=== PATIENT | female | born 1990 | race Caucasian/White ===

== ENCOUNTER 2017-01-29 00:34 | Observation (INO) ==
[2017-01-29] MEDS ORDERED: SODIUM CHLORIDE 0.9% 500 ML IV STA (01:04)
[2017-01-29] MEDS ORDERED: ONDANSETRON 4 MG/2 ML VIAL IV STA ×2 (01:04→03:30)
[2017-01-29] MEDS ORDERED: MORPHINE 2 MG/1 ML SYRINGE IV STA ×2 (01:06→03:30)
[2017-01-29] MEDS ORDERED: ONDANSETRON 4 MG/2 ML VIAL ONE ×2 (01:27→03:28)
[2017-01-29] MEDS ORDERED: MORPHINE 2 MG/1 ML SYRINGE ONE ×2 (01:27→03:28)
[2017-01-29 01:45] LABS: Basophils % 0.3 % (0.0-0.8); Eosinophils # 0.2 10*3/uL (0.0-0.87); Eosinophils % 1.3 % (0.00-10.9); Hematocrit 33.8 VOL% (35.7-47.0); Hemoglobin 11.2 GM/DL (12.0-16.0); Immature Granulocytes % 0.5 %; Immature Granulocytes Absolute 0.06 #; Lymphocytes % 16.5 % (21.3-54.2); Mean Corpuscular HGB Conc 33.1 GM/DL (32-36); Mean Corpuscular Hemoglobin 27 PG (27-34); Mean Corpuscular Volume 80.5 FL (87-102); Mean Platelet Volume 9.9 FL (9.6-12.0); Monocytes # 0.5 10*3/uL (0.11-0.8); Monocytes % 3.7 % (1.7-12.7); Neutrophils # 9.3 10*3/uL (1.4-7.4); Neutrophils % 77.7 % (38.7-73.9); Platelet Count 341 T/CUMM (130-400); Red Cell Distribution Width 14.6 % (9.3-17.3)
[2017-01-29 01:51] LABS: Alanine Aminotransferase 17 U/L (13-56); Albumin 3.1 G/DL (3.4-5.0); Alkaline Phosphatase 81 U/L (45-117); Aspartate Amino Transferase 12 U/L (0-37); Bilirubin,Total < 0.39 MG/DL (0.2-1.0); Blood Urea Nitrogen 11 MG/DL (7-18); Calcium 8.8 MG/DL (8.5-10.1); Glucose 108 MG/DL (74-106); Osmolality,Calculated 276.5 MOS/KG (273-304); Potassium 3.8 MMOL/L (3.5-5.1); Sodium 139 MMOL/L (136-145); Total Protein 6.4 G/DL (6.4-8.3)
[2017-01-29] MEDS ORDERED: MAGNESIUM HYDROXIDE SUSP 30 ML UDCUP PO PRN (03:31)
[2017-01-29] MEDS ORDERED: ACETAMINOPHEN 325 MG TABLET PO PRN (03:31)
[2017-01-29] MEDS ORDERED: IBUPROFEN 800 MG TABLET PO PRN (03:31)
[2017-01-29] MEDS ORDERED: ONDANSETRON 4 MG/2 ML VIAL IV PRN (03:31)
[2017-01-29] MEDS ORDERED: BISACODYL 10 MG SUPP RECTAL PRN (03:31)
[2017-01-29] MEDS ORDERED: MORPHINE 2 MG/1 ML SYRINGE IV PRN (03:31)
--- NOTE | 2017-01-29 03:34 | Emergency Department Note ---
I, Quyen Ahumada, am scribing for, and in the presence of, Rey Waldron MD 01: 11. [employer] Kevin Lee, MD, personally performed the services described in this documentation, ascribed by Quyen Ahumada in my presence, and it is both accurate and complete . Arrival - Arrival Chief Complaint: Urogenital - Female Stated Complaint: having miscarriage ED Nursing Triage Note: TO ER PER WHEELCHAIR WITH COMPLAINT OF HAVING A MISCARRIAGE. STATES HAS BEEN BLEEDING HEAVILY AND PASSING BLOOD CLOTS FOR PAST 8 -9 DAYS. PATIENT STATES WAS SEEN AT [facility] FOR SAME COMPLAINT BUT STATES THEY DID NOTHING FOR HER. TONIGHT PATIENT BEGAN HAVING SEVERE LOWER ABOMINAL CRAMPS AROUND 2100 THAT HAVE PROGRESSIVELY BECAME WORSE AND AT SOME POINT SINCE THEN PATIENT STATES SHE HAS PASSED A TISSUE LIKE SUBSTANCE THAT RESEMBLED A CHICKEN LIVER. PATIENT ESTIMATED HERSELF ABOUNT 6 WEEKS . Mode of Arrival: Wheelchair Limitations: No Limitations Source: Patient - History of Present Illness HPI Narrative: Pt is a 26 y/o female who came to ED with c/o severe cramping in lower abdomen that started over a week ago. Pt notes going to see Dr. Carr due to vaginal bleeding but quantadative base ABG test results should be back tomorrow. Pt had sonogram done 2-3 weeks prior showing no fetus. Spouse notes they went to [facility] with vaginal bleeding but was told there was nothing to do, then saw Dr. Carr. Pt notes her biggest clot was tonight and cramps have worsened. Pt reports being 8 weeks gestation this week, but denies fever or US done. Pt's O2 sat is 126 in ED. Onset (ago): day(s) Consistency: constant Severity: mild Severity scale (1-10): 3 Quality: cramping Date of Last Menstrual Period: 10/2016 Allergies/Adverse Reactions: Allergies Allergy/AdvReac Type Severity Reaction Status Date / Time No Known Allergies Allergy Unverified 01/29/17 00:57 Review of System - Review of System 12 point system: reviewed and no additional remarkable complaints except as stated - Review of System Constitutional: Absent: fever, weakness Respiratory: Absent: respiratory distress Cardiovascular: Absent: chest pain Gastrointestinal: Present: abdominal pain (cramping; lower) Genitourinary female: Present: other (vaginal bleeding) Musculoskeletal: Absent: arm pain Skin: Absent: rash Neurological: Absent: headache Medical,Surgical,& Family Hx - Family History Family History: noncontributory - Social History Smoking Status: Unknown if ever smoked Frequency of Alcohol Use: None Type of Drug Use: None Marital Status: Lives With:: Spouse Functional capacity: independent ambulation Exam Vital Signs: Vital Signs Temperature 97.3 F L 01/29/17 00:46 Pulse Rate 83 01/29/17 00:46 Respiratory Rate 26 H 01/29/17 00:46 Blood Pressure 126/92 01/29/17 00:46 O2 Sat by Pulse Oximetry 100 01/29/17 01:35 - General General appearance: alert, in no apparent distress - Head Head exam: Present: atraumatic, normocephalic - Eye Eye exam: Present: PERRL, EOMI - ENT ENT exam: Present: mucous membranes moist. Absent: mucous membranes dry - Neck Neck exam: Present: full ROM. Absent: tenderness - Chest Chest inspection: Present: symmetric chest wall rise - Respiratory Respiratory exam: Present: normal lung sounds bilaterally. Absent: respiratory distress - Cardiovascular Cardiovascular exam: Present: regular rate, normal rhythm, normal heart sounds - Abdominal Exam Abdominal exam: Present: soft, other. Absent: tenderness - Extremities Exam Extremities exam: Present: full ROM. Absent: tenderness, pedal edema - Neurological Exam Neurological exam: Present: alert, oriented X3, CN II-XII intact. Absent: motor sensory deficit - Psychiatric Psychiatric exam: Present: normal affect, normal mood - Skin Skin exam: Present: warm, dry Course Course Narrative: will admit for [facility] Results - Labs CBC & BMP: 01/29/17 01:21 01/29/17 01:21 Lab Results: I have reviewed the patients labs Labs: Laboratory Tests 01/29/17 01/29/17 01:21 01:21 WBC 12.0 RBC 4.20 Hgb 11.2 L Hct 33.8 L MCV 80.5 L Plt Count 341 Neut % (Auto) 77.7 H Lymph % (Auto) 16.5 L Neut # (Auto) 9.3 H Sodium 139 Potassium 3.8 Chloride 106 Carbon Dioxide 22 Creatinine 0.90 GFR Calculation 110 Glucose 108 H AST 12 Albumin 3.1 L Albumin/Globulin Ratio 0.9 L Laboratory Tests 08/17/17 08/17/17 01:21 01:21 HCG Beta Subunit 1182.0 H Blood Type O POSITIVE Antibody Screen Negative - Diagnostic Findings Procedure: Ultrasound: image reviewed by me, report reviewed by me (incomplete ab. US preg transabd first trimester: In this setting of positive test, the saccular fluid collection in the lower uterine segment may represent an in progress, missed , or less likely a pseudo-sac of ectopic . Careful follow up with quantitative beta HCG's and US recommended.) Disposition Clinical Impression: Incomplete Case discussed with: patient Disposition: Still a Patient Condition: Stable
[2017-01-29] MEDS ORDERED: LACTATED RINGERS 1,000 ML IV SCH (04:00)
--- NOTE | 2017-01-29 06:48 | Ultrasound Report ---
US OB <= 14 weeks fetus Indication: Vaginal bleeding. . First trimester ultrasound: Transabdominal and endovaginal images the pelvis were obtained, Morris scale and color Doppler. Uterus is anteverted measuring 123 x 45 x 56 mm. There is a saclike structure in the lower uterine segment that contains some debris but no discretely identifiable anatomic structures such as yolk sac or pole. Average diameter of the sac is 12 mm. No motion identified to suggest cardiac activity. Right ovary 17 x 13 x 18 mm. Left ovary 33 x 16 x 22 mm. Both are unremarkable. No free fluid in the cul-de-sac. Impression: Presumed SAB with a 12 mm saclike structure containing debris in the lower uterine segment. If this represents , it is approximately 5 weeks 2 days. No cardiac activity or other discretely identified anatomic structures are present. PROCEDURE INTERPRETED AT [facility] DEPARTMENT OF RADIOLOGY Final Report Signed by: Julien Eugene M.D.
[2017-01-29] MEDS: DOCUSATE SODIUM 100 MG CAPSULE PO SCH ×2 (09:31→20:43)
[2017-01-29] MEDS: OXYTOCIN/LR 20 UNIT/1,000 ML BAG IV SCH ×2 (11:09→18:19)
--- NOTE | 2017-01-29 11:37 | OB/GYN History & Physical ---
History of Present Illness Chief complaint: Vaginal bleeding History of present illness: Ms. Posey is a 26 year old female This patient presented to the emergency room last evening with vaginal bleeding and after passing a large clot. Ultrasound of the emergency room was obtained was demonstrated to be approximately 5 weeks and 2 days. The gestational sac was completely compressed and was in the lower uterine segment indicating an impending miscarriage. There was no cardiac activity noted. This patient had been experiencing vaginal bleeding and been seen at the [facility] emergency room as well. No ultrasound was performed at that particular visit. This patient was evaluated over the evening and she had small amount of bleeding through the night and presently with no active bleeding. Discussed with this patient the impending spontaneous miscarriage. And will add the IV Pitocin and analgesic to assist her with this process. Risks benefits were thoroughly discussed and she is in full agreement. Beta hCG titer and went from 1100 down to 600. Allergies Allergy/AdvReac Type Severity Reaction Status Date / Time No Known Allergies Allergy Unverified 01/29/17 00:57 Medical,Surgical,& Family Hx - Medical History Respiratory: History of: Pneumonia (9 years ago) Musculoskeletal: History of: Musculoskeletal Problems (scoliosis) No history of: Amputation - Surgical History Cardiac Surgeries: Patient Denies: Cardiac Catheterization Thoracic Surgeries: Patient denies;: Organ Transplant, Lobectomy Neurologic Surgeries: Patient denies: Neurologic Surgery HEENT Surgeries: Patient denies: Eye Surgery, Thyroid Surgery, Tonsilectomy & Adenoidectomy Abdominal Surgeries: Patient denies: Abdominal Surgery Reproductive Surgeries: Surgical HX of;: Section (2013), Gynecologic Surgery Patient denies;: Genitourinary Surgery - Family History Family History: Reports;: Family Cancer (Maternal g'father throat CA), Family Diabetes (Father), Family Heart Disease (Father), Family Hypertension (Father) Denies;: Family Anesthesia Reaction, Family Hematology, Family Psychiatric Problems, Family Stroke, Additional Family History - Social History Smoking Status: Former smoker Frequency of Alcohol Use: None Type of Drug Use: None 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 Vitals: Vital Signs Temp Pulse Pulse Resp BP BP Pulse Ox 01/29/17 11:05 98.2 F 58 L 20 115/52 01/29/17 07:16 98.4 F 77 18 118/74 01/29/17 06:44 16 01/29/17 06:24 20 01/29/17 05:00 20 01/29/17 04:00 97 F L 74 20 128/63 01/29/17 01:35 01/29/17 00:46 97.3 F L 83 26 H 126/92 99 Pulse Ox Pulse Ox 01/29/17 11:05 98 01/29/17 07:16 97 01/29/17 06:44 01/29/17 06:24 01/29/17 05:00 01/29/17 04:00 99 01/29/17 01:35 100 01/29/17 00:46 General appearance: no acute distress - Antepartum / Post Antepartum Exam Vagina: Present: normal moisture (Vaginal bleeding noted on the perineum.) - Head Head exam: Present: normal inspection - Eye Eye exam: Present: EOMI Pupils: Present: MENDY - ENT ENT exam: Present: normal exam - Neck Neck exam: Present: normal inspection - Respiratory Respiratory exam: Present: clear to auscultation bilaterally - Breast Breasts: as per HPI Menstruation: as per HPI (Bleeding passes of a clot. Blood is on her perineum as well.) - Cardiovascular Cardiovascular exam: Present: regular rate and rhythm - GI/Abdominal GI/Abdominal exam: Present: normal bowel sounds - Extremities Exam Extremities exam: Present: normal inspection - Back Exam Back exam: Present: normal inspection - Psychiatric Psychiatric exam: Present: normal affect - Skin Skin exam: Present: normal color Assessment and Plan (1) Incomplete Status: Acute Assessment and plan: IV Pitocin, analgesic, impending AB. Current Visit: Yes Results - Labs CBC & BMP: 01/29/17 01:21 01/29/17 01:21
--- NOTE | 2017-01-30 07:57 | Ultrasound Report ---
US pelvic complete Indication: Check for retained products of conception Comparison: OB ultrasound January 29, 2017. Technique: Multiple longitudinal and transverse sonographic images of the pelvis were obtained with transabdominal probe. Findings: Uterus is anteverted and measures 11.6 x 4.6 x 5.9 cm. Endometrial stripe measures 0.51 cm. There is heterogeneously hypoechoic echotexture within the region of the endocervical canal which appears prominent. Retained products of conception not excluded. Right ovary measurement given of 2.7 x 1.3 x 1.8 cm. Left ovary measurement given of 3.4 x 1.5 x 2.2 cm. IMPRESSION: There is heterogeneously hypoechoic echotexture within the region of the endocervical canal which appears prominent. Retained products of conception not excluded. Transvaginal ultrasound may be of benefit for further evaluation. PROCEDURE INTERPRETED AT [facility] DEPARTMENT OF RADIOLOGY Final Report Signed by: Dr Cuate Sánchez
[2017-01-30 08:06] VITALS: BP 112/57
[2017-01-30] MEDS ORDERED: oxyCODONE/ACETAMINOPHEN 5-325 MG TABLET PO PRN (10:24)
[2017-01-30] MEDS: DOCUSATE SODIUM 100 MG CAPSULE PO SCH (11:48)
--- NOTE | 2017-02-08 02:11 | Discharge Summary ---
DATE OF ADMISSION: 01/29/2017 DATE OF DISCHARGE: 01/30/2017 She was admitted to the emergency room with vaginal bleeding and after passing large amount of blood clots. Ultrasound was obtained of the pelvis demonstrated compressed sac to be approximately 5 weeks and 2 days. There was no cardiac activity noted. Beta hCG titer was 1100 and had decreased to 600. She was observed over the evening with IV Pitocin. Repeat ultrasound demonstrated no cardiac activ ity and no evidence of intrauterine . The patient was ambulating well, voiding well without any shortness of breath or chest pain. She was subsequently discharged and advised to followup [facility] care.
== END 2017-01-30 13:00 | disposition home or self-care (01) ==
LOC: N.ED 00:34 → N.OB 00:34
PROVIDERS: ADMIT Obstetrics & Gynecology; ATTEND Obstetrics & Gynecology

== ENCOUNTER 2017-06-11 13:54 | Inpatient (IN) ==
[2017-06-11 15:36] LABS: Apearance,Urine Slightly Hazy (Clear); Bilirubin,Urine Negative (Negative); Blood, Urine Large mg/dL (Negative); Glucose,Urine (UA) Negative (Negative); Ketones,Urine 20 mg/dL (Negative); Mucus,Urine Few /LPF (Occasional); Nitrite,Urine Negative (Negative); Protein,Urine Negative; RBC,Urine 2 /HPF (0-4); Squamous Epithelial Cell,Urine Occasional /HPF (0-10); Urine Color Yellow (Yellow); Urine Specific Gravity 1.014 (1.001-1.035); Urine Urobilinogen < 2.0 EU/DL (0.2-1.0); WBC,Urine 2 /HPF (0-6)
[2017-06-11 16:43] LABS: Basophils % 0.2 % (0.0-0.8); Hematocrit 35.5 VOL% (35.7-47.0); Immature Granulocytes % 0.8 %; Immature Granulocytes Absolute 0.17 #; Lymphocytes # 1.8 10*3/uL (1.4-4.0); Lymphocytes % 8.2 % (21.3-54.2); Mean Corpuscular Hemoglobin 25 PG (27-34); Mean Corpuscular Volume 79.4 FL (87-102); Mean Platelet Volume 9.7 FL (9.6-12.0); Monocytes # 0.7 10*3/uL (0.11-0.8); Neutrophils # 19.6 10*3/uL (1.4-7.4); Neutrophils % 87.8 % (38.7-73.9); Platelet Count 451 T/CUMM (130-400); Red Blood Count 4.47 MC/CUMM (3.8-5.5); Red Cell Distribution Width 15.9 % (9.3-17.3); White Blood Count 22.3 T/CUMM (4-12)
[2017-06-11 17:05] LABS: Albumin 3.2 G/DL (3.4-5.0); Bilirubin,Total 0.4 MG/DL (0.2-1.0); Calcium 8.6 MG/DL (8.5-10.1); Potassium 3.7 MMOL/L (3.5-5.1); Total Protein 6.7 G/DL (6.4-8.3)
[2017-06-11] MEDS: LACTATED RINGERS 1,000 ML IV SCH (17:27)
[2017-06-11] MEDS ORDERED: MORPHINE 2 MG/1 ML SYRINGE ONE ×2 (17:30→19:19)
[2017-06-11] MEDS ORDERED: ONDANSETRON 4 MG/2 ML VIAL ONE (17:31)
[2017-06-11] MEDS: ONDANSETRON 4 MG/2 ML VIAL IV PRN (17:36)
[2017-06-11] MEDS: MORPHINE 2 MG/1 ML SYRINGE IV PRN ×2 (17:40→21:41)
[2017-06-11] MEDS ORDERED: MORPHINE 2 MG/1 ML SYRINGE IV ONE (19:15)
[2017-06-11 19:35] LABS: Band Neutrophils 1 % (0-10); Lymphocytes 5 % (20-55); Metamyelocytes 1 %; Segmented Neutrophils 93 % (50-85); Total Cells Counted 100
[2017-06-11 19:36] LABS: Platelet Estimate Normal; Polychromasia Few
[2017-06-11] MEDS: ACETAMINOPHEN 325 MG TABLET PO PRN (20:31)
[2017-06-11] MEDS: PIPERACILLIN/TAZOBACTAM 3,375 MG in SODIUM CHLORIDE 0.9% 100 ML IV SCH (22:50)
[2017-06-12] MEDS: MORPHINE 2 MG/1 ML SYRINGE IV PRN ×2 (02:54→07:18)
[2017-06-12] MEDS: PIPERACILLIN/TAZOBACTAM 3,375 MG in SODIUM CHLORIDE 0.9% 100 ML IV SCH ×3 (07:17→23:18)
[2017-06-12] MEDS: ACETAMINOPHEN 325 MG TABLET PO PRN (07:17)
[2017-06-12] MEDS ORDERED: BUPIVACAINE 0.25% 50 ML VIAL ONE (07:49)
[2017-06-12] MEDS: PANTOPRAZOLE 40 MG TABLET PO SCH (08:07)
[2017-06-12 08:10] LABS: Basophils % 0.2 % (0.0-0.8); Hematocrit 36.7 VOL% (35.7-47.0); Hemoglobin 11.4 GM/DL (12.0-16.0); Immature Granulocytes % 1.4 %; Immature Granulocytes Absolute 0.37 #; Lymphocytes # 1.2 10*3/uL (1.4-4.0); Lymphocytes % 4.4 % (21.3-54.2); Mean Corpuscular HGB Conc 31.1 GM/DL (32-36); Mean Corpuscular Hemoglobin 25 PG (27-34); Mean Corpuscular Volume 78.9 FL (87-102); Mean Platelet Volume 9.9 FL (9.6-12.0); Monocytes # 0.8 10*3/uL (0.11-0.8); Neutrophils # 23.8 10*3/uL (1.4-7.4); Platelet Count 537 T/CUMM (130-400); Red Blood Count 4.65 MC/CUMM (3.8-5.5); Red Cell Distribution Width 16.1 % (9.3-17.3); White Blood Count 26.1 T/CUMM (4-12)
[2017-06-12 08:30] LABS: Band Neutrophils 1 % (0-10); Giant Platelets Few; Hypochromasia 1+; Lymphocytes 7 % (20-55); Ovalocytes Slight; Platelet Estimate Increased; Segmented Neutrophils 90 % (50-85); Total Cells Counted 100
[2017-06-12] MEDS ORDERED: PROPOFOL 200 MG/20 ML VIAL IV ONE ×2 (09:51→09:55)
[2017-06-12] MEDS ORDERED: fentaNYL 100 MCG/2 ML VIAL ONE (09:52)
[2017-06-12] MEDS ORDERED: KETOROLAC 30 MG/1 ML VIAL ONE (09:52)
[2017-06-12] MEDS ORDERED: MIDAZOLAM 2 MG/2 ML VIAL ONE (09:52)
[2017-06-12] MEDS ORDERED: GLYCOPYRROLATE 0.4 MG/2 ML VIAL ONE (09:52)
[2017-06-12] MEDS ORDERED: ONDANSETRON 4 MG/2 ML VIAL ONE (09:52)
[2017-06-12] MEDS ORDERED: NEOSTIGMINE 10 MG/10 ML VIAL ONE (09:53)
[2017-06-12] MEDS ORDERED: ROCURONIUM 100 MG/10 ML VIAL IV ONE (09:53)
[2017-06-12] MEDS ORDERED: ACETAMINOPHEN 1,000 MG/100 ML VIAL IV ONE (09:53)
[2017-06-12] MEDS: LACTATED RINGERS 1,000 ML IV SCH ×2 (10:19→19:57)
[2017-06-12] MEDS: metroNIDAZOLE INJ 500 MG in PREMIX 1 EACH IV SCH ×3 (11:14→22:32)
[2017-06-13] MEDS: LACTATED RINGERS 1,000 ML IV SCH ×4 (01:52→19:09)
[2017-06-13 04:38] LABS: Basophils # 0.1 10*3/uL (0.0-0.2); Basophils % 0.2 % (0.0-0.8); Eosinophils % 0.1 % (0.00-10.9); Hematocrit 35.7 VOL% (35.7-47.0); Hemoglobin 11.3 GM/DL (12.0-16.0); Immature Granulocytes Absolute 0.52 #; Lymphocytes % 7.8 % (21.3-54.2); Mean Corpuscular HGB Conc 31.7 GM/DL (32-36); Mean Corpuscular Hemoglobin 24 PG (27-34); Mean Corpuscular Volume 76.6 FL (87-102); Mean Platelet Volume 9.6 FL (9.6-12.0); Monocytes # 0.7 10*3/uL (0.11-0.8); Monocytes % 2.7 % (1.7-12.7); Neutrophils # 22.3 10*3/uL (1.4-7.4); Neutrophils % 87.2 % (38.7-73.9); Platelet Count 547 T/CUMM (130-400); Red Blood Count 4.66 MC/CUMM (3.8-5.5); Red Cell Distribution Width 15.9 % (9.3-17.3); White Blood Count 25.5 T/CUMM (4-12)
[2017-06-13] MEDS: metroNIDAZOLE INJ 500 MG in PREMIX 1 EACH IV SCH ×4 (04:46→22:07)
[2017-06-13] MEDS: PIPERACILLIN/TAZOBACTAM 3,375 MG in SODIUM CHLORIDE 0.9% 100 ML IV SCH ×3 (05:57→23:15)
[2017-06-13] MEDS: MORPHINE 2 MG/1 ML SYRINGE IV PRN ×3 (08:29→23:15)
[2017-06-13] MEDS: ONDANSETRON 4 MG/2 ML VIAL IV PRN ×3 (08:29→22:08)
[2017-06-13 08:55] LABS: Band Neutrophils 9 % (0-10); Hypochromasia 1+; Lymphocytes 6 % (20-55); Segmented Neutrophils 83 % (50-85); Total Cells Counted 100
[2017-06-13 08:56] LABS: Microcytosis 1+; Platelet Estimate Increased
[2017-06-13] MEDS: ACETAMINOPHEN 325 MG TABLET PO PRN (13:26)
[2017-06-13] MEDS: PANTOPRAZOLE 40 MG TABLET PO SCH (16:26)
[2017-06-14] MEDS: LACTATED RINGERS 1,000 ML IV SCH ×3 (03:51→20:22)
[2017-06-14] MEDS: metroNIDAZOLE INJ 500 MG in PREMIX 1 EACH IV SCH ×4 (05:15→22:01)
[2017-06-14] MEDS: MORPHINE 2 MG/1 ML SYRINGE IV PRN ×2 (05:15→14:38)
[2017-06-14 05:38] LABS: Basophils % 0.2 % (0.0-0.8); Hematocrit 35.1 VOL% (35.7-47.0); Hemoglobin 11.2 GM/DL (12.0-16.0); Immature Granulocytes % 2.2 %; Immature Granulocytes Absolute 0.57 #; Lymphocytes # 1.3 10*3/uL (1.4-4.0); Mean Corpuscular HGB Conc 31.9 GM/DL (32-36); Mean Corpuscular Hemoglobin 25 PG (27-34); Mean Corpuscular Volume 77.5 FL (87-102); Mean Platelet Volume 9.9 FL (9.6-12.0); Monocytes # 0.7 10*3/uL (0.11-0.8); Monocytes % 2.8 % (1.7-12.7); Neutrophils # 23.4 10*3/uL (1.4-7.4); Neutrophils % 89.8 % (38.7-73.9); Platelet Count 567 T/CUMM (130-400); Red Blood Count 4.53 MC/CUMM (3.8-5.5); White Blood Count 26.1 T/CUMM (4-12)
[2017-06-14 06:12] LABS: Calcium 8.3 MG/DL (8.5-10.1)
[2017-06-14 06:13] LABS: Osmolality,Calculated 265.4 MOS/KG (273-304); Potassium 3.6 MMOL/L (3.5-5.1)
[2017-06-14] MEDS: PIPERACILLIN/TAZOBACTAM 3,375 MG in SODIUM CHLORIDE 0.9% 100 ML IV SCH ×3 (06:42→23:03)
[2017-06-14 07:02] LABS: Band Neutrophils 11 % (0-10); Lymphocytes 1 % (20-55); Segmented Neutrophils 84 % (50-85); Total Cells Counted 100
[2017-06-14 07:03] LABS: Anisocytosis 1+; Poikilocytosis 1+; Polychromasia Slight
[2017-06-14] MEDS: ONDANSETRON 4 MG/2 ML VIAL IV PRN ×2 (09:47→14:35)
[2017-06-14] MEDS: PANTOPRAZOLE 40 MG TABLET PO SCH (09:55)
[2017-06-14] MEDS ORDERED: TEMAZEPAM 7.5 MG CAPSULE PO PRN (18:44)
[2017-06-14] MEDS ORDERED: BISACODYL 10 MG SUPP RECTAL ONE (18:44)
[2017-06-15] MEDS: LACTATED RINGERS 1,000 ML IV SCH ×2 (04:21→18:43)
[2017-06-15] MEDS: metroNIDAZOLE INJ 500 MG in PREMIX 1 EACH IV SCH ×4 (04:21→22:57)
[2017-06-15] MEDS: ONDANSETRON 4 MG/2 ML VIAL IV PRN ×3 (04:22→20:08)
[2017-06-15] MEDS: PIPERACILLIN/TAZOBACTAM 3,375 MG in SODIUM CHLORIDE 0.9% 100 ML IV SCH ×3 (07:08→23:57)
[2017-06-15 07:50] LABS: Basophils % 0.1 % (0.0-0.8); Eosinophils % 0.2 % (0.00-10.9); Hematocrit 34.1 VOL% (35.7-47.0); Hemoglobin 10.6 GM/DL (12.0-16.0); Immature Granulocytes % 1.2 %; Immature Granulocytes Absolute 0.27 #; Lymphocytes # 2.7 10*3/uL (1.4-4.0); Lymphocytes % 11.6 % (21.3-54.2); Mean Corpuscular HGB Conc 31.1 GM/DL (32-36); Mean Corpuscular Hemoglobin 25 PG (27-34); Mean Corpuscular Volume 78.8 FL (87-102); Mean Platelet Volume 9.4 FL (9.6-12.0); Monocytes # 0.7 10*3/uL (0.11-0.8); Monocytes % 3.1 % (1.7-12.7); Neutrophils # 19.3 10*3/uL (1.4-7.4); Neutrophils % 83.8 % (38.7-73.9); Platelet Count 661 T/CUMM (130-400); Red Blood Count 4.33 MC/CUMM (3.8-5.5); Red Cell Distribution Width 16.3 % (9.3-17.3); White Blood Count 23.1 T/CUMM (4-12)
[2017-06-15 08:12] LABS: Band Neutrophils 5 % (0-10); Hypochromasia 1+; Lymphocytes 11 % (20-55); Microcytosis 1+; Segmented Neutrophils 83 % (50-85); Total Cells Counted 100
[2017-06-15 08:13] LABS: Ovalocytes Slight; Platelet Estimate Increased
[2017-06-15 08:21] LABS: Alanine Aminotransferase 9 U/L (13-56); Albumin 2.3 G/DL (3.4-5.0); Alkaline Phosphatase 89 U/L (45-117); Aspartate Amino Transferase 9 U/L (0-37); Bilirubin,Total < 0.39 MG/DL (0.2-1.0); Blood Urea Nitrogen 12 MG/DL (7-18); Calcium 8.3 MG/DL (8.5-10.1); Glucose 107 MG/DL (74-106); Potassium 3.6 MMOL/L (3.5-5.1); Sodium 136 MMOL/L (136-145)
[2017-06-15] MEDS: PANTOPRAZOLE 40 MG TABLET PO SCH (09:31)
[2017-06-15 17:43] LABS: Apearance,Urine Slightly Hazy (Clear); Bilirubin,Urine Negative (Negative); Blood, Urine Small mg/dL (Negative); Glucose,Urine (UA) Negative (Negative); Ketones,Urine Negative (Negative); Nitrite,Urine Negative (Negative); Protein,Urine Negative; RBC,Urine 2 /HPF (0-4); Squamous Epithelial Cell,Urine Few /HPF (0-10); Urine Color Amber (Yellow); Urine Specific Gravity 1.028 (1.001-1.035); Urine Urobilinogen < 2.0 EU/DL (0.2-1.0); WBC,Urine 7 /HPF (0-6)
[2017-06-16] MEDS: ONDANSETRON 4 MG/2 ML VIAL IV PRN ×2 (03:28→09:34)
[2017-06-16] MEDS: LACTATED RINGERS 1,000 ML IV SCH ×2 (03:32→04:08)
[2017-06-16 04:44] LABS: Basophils # 0.1 10*3/uL (0.0-0.2); Basophils % 0.4 % (0.0-0.8); Eosinophils # 0.1 10*3/uL (0.0-0.87); Eosinophils % 0.5 % (0.00-10.9); Hematocrit 29.8 VOL% (35.7-47.0); Hemoglobin 9.4 GM/DL (12.0-16.0); Immature Granulocytes % 1.5 %; Immature Granulocytes Absolute 0.25 #; Lymphocytes # 2.5 10*3/uL (1.4-4.0); Lymphocytes % 14.7 % (21.3-54.2); Mean Corpuscular HGB Conc 31.5 GM/DL (32-36); Mean Corpuscular Hemoglobin 25 PG (27-34); Mean Corpuscular Volume 77.6 FL (87-102); Mean Platelet Volume 9.4 FL (9.6-12.0); Monocytes # 0.8 10*3/uL (0.11-0.8); Monocytes % 4.6 % (1.7-12.7); Neutrophils # 13.1 10*3/uL (1.4-7.4); Neutrophils % 78.3 % (38.7-73.9); Platelet Count 572 T/CUMM (130-400); Red Blood Count 3.84 MC/CUMM (3.8-5.5); Red Cell Distribution Width 16.5 % (9.3-17.3); White Blood Count 16.8 T/CUMM (4-12)
[2017-06-16] MEDS: metroNIDAZOLE INJ 500 MG in PREMIX 1 EACH IV SCH ×4 (04:57→22:00)
[2017-06-16 05:18] LABS: Giant Platelets Few; Hypochromasia 1+; Microcytosis Slight; Ovalocytes Slight; Platelet Estimate Adequate
[2017-06-16] MEDS: PIPERACILLIN/TAZOBACTAM 3,375 MG in SODIUM CHLORIDE 0.9% 100 ML IV SCH ×3 (06:40→23:11)
[2017-06-16] MEDS: PANTOPRAZOLE 40 MG TABLET PO SCH (09:36)
[2017-06-16] MEDS: ENOXAPARIN 40 MG/0.4 ML SYRINGE SUBCUT SCH (11:02)
[2017-06-16] MEDS: DEXTROSE 5% NACL 0.45% 1,000 ML IV SCH (11:17)
[2017-06-16] MEDS: MORPHINE 2 MG/1 ML SYRINGE IV PRN ×3 (11:19→22:00)
[2017-06-17] MEDS: DEXTROSE 5% NACL 0.45% 1,000 ML IV SCH ×3 (05:22→16:56)
[2017-06-17] MEDS: MORPHINE 2 MG/1 ML SYRINGE IV PRN ×2 (05:23→18:29)
[2017-06-17] MEDS: metroNIDAZOLE INJ 500 MG in PREMIX 1 EACH IV SCH ×4 (05:23→23:22)
[2017-06-17 05:33] LABS: Basophils % 0.3 % (0.0-0.8); Eosinophils # 0.1 10*3/uL (0.0-0.87); Eosinophils % 0.6 % (0.00-10.9); Hematocrit 30.9 VOL% (35.7-47.0); Hemoglobin 9.6 GM/DL (12.0-16.0); Immature Granulocytes % 1.7 %; Immature Granulocytes Absolute 0.27 #; Lymphocytes # 1.9 10*3/uL (1.4-4.0); Mean Corpuscular HGB Conc 31.1 GM/DL (32-36); Mean Corpuscular Hemoglobin 24 PG (27-34); Mean Corpuscular Volume 78.2 FL (87-102); Mean Platelet Volume 9.3 FL (9.6-12.0); Monocytes # 0.6 10*3/uL (0.11-0.8); Monocytes % 3.6 % (1.7-12.7); NRBC # 0.03 10*3/uL; Neutrophils # 12.7 10*3/uL (1.4-7.4); Neutrophils % 81.8 % (38.7-73.9); Platelet Count 526 T/CUMM (130-400); Red Blood Count 3.95 MC/CUMM (3.8-5.5); Red Cell Distribution Width 16.7 % (9.3-17.3); White Blood Count 15.5 T/CUMM (4-12)
[2017-06-17 05:58] LABS: Calcium 7.6 MG/DL (8.5-10.1); Osmolality,Calculated 269.8 MOS/KG (273-304); Potassium 3.6 MMOL/L (3.5-5.1)
[2017-06-17 06:05] LABS: Anisocytosis 1+; Poikilocytosis 1+; Polychromasia 1+
[2017-06-17] MEDS: PIPERACILLIN/TAZOBACTAM 3,375 MG in SODIUM CHLORIDE 0.9% 100 ML IV SCH ×3 (06:35→23:20)
[2017-06-17] MEDS: PANTOPRAZOLE 40 MG TABLET PO SCH (07:59)
[2017-06-17] MEDS: ENOXAPARIN 40 MG/0.4 ML SYRINGE SUBCUT SCH (09:09)
[2017-06-17 12:21] LABS: Apearance,Urine Slightly Hazy (Clear); Bilirubin,Urine Negative (Negative); Blood, Urine Small mg/dL (Negative); Glucose,Urine (UA) Negative (Negative); Hyaline Casts,Urine 1 /LPF (0-3); Ketones,Urine 5 mg/dL (Negative); Mucus,Urine Occasional /LPF (Occasional); Nitrite,Urine Negative (Negative); Protein,Urine Negative; RBC,Urine 13 /HPF (0-4); Squamous Epithelial Cell,Urine Few /HPF (0-10); Urine Color Amber (Yellow); Urine Specific Gravity 1.021 (1.001-1.035); Urine Urobilinogen < 2.0 EU/DL (0.2-1.0); WBC,Urine 5 /HPF (0-6)
[2017-06-17] MEDS: ONDANSETRON 4 MG/2 ML VIAL IV PRN (18:29)
[2017-06-18] MEDS: MORPHINE 2 MG/1 ML SYRINGE IV PRN (02:32)
[2017-06-18] MEDS: DEXTROSE 5% NACL 0.45% 1,000 ML IV SCH ×3 (03:01→12:08)
[2017-06-18 04:08] LABS: Basophils # 0.1 10*3/uL (0.0-0.2); Basophils % 0.4 % (0.0-0.8); Eosinophils # 0.2 10*3/uL (0.0-0.87); Eosinophils % 1.4 % (0.00-10.9); Hematocrit 30.8 VOL% (35.7-47.0); Hemoglobin 9.3 GM/DL (12.0-16.0); Immature Granulocytes % 2.5 %; Immature Granulocytes Absolute 0.35 #; Lymphocytes # 1.7 10*3/uL (1.4-4.0); Lymphocytes % 12.1 % (21.3-54.2); Mean Corpuscular HGB Conc 30.2 GM/DL (32-36); Mean Corpuscular Hemoglobin 24 PG (27-34); Mean Corpuscular Volume 80.4 FL (87-102); Mean Platelet Volume 9.5 FL (9.6-12.0); Monocytes # 0.6 10*3/uL (0.11-0.8); Monocytes % 3.9 % (1.7-12.7); NRBC # 0.02 10*3/uL; Neutrophils # 11.1 10*3/uL (1.4-7.4); Neutrophils % 79.7 % (38.7-73.9); Platelet Count 532 T/CUMM (130-400); Red Blood Count 3.83 MC/CUMM (3.8-5.5)
[2017-06-18 04:44] LABS: Calcium 7.6 MG/DL (8.5-10.1); Osmolality,Calculated 273.5 MOS/KG (273-304); Potassium 3.5 MMOL/L (3.5-5.1)
[2017-06-18] MEDS: metroNIDAZOLE INJ 500 MG in PREMIX 1 EACH IV SCH ×4 (04:50→22:30)
[2017-06-18 05:48] LABS: Band Neutrophils 1 % (0-10); Eosinophils 1 % (0-10); Hypochromasia 1+; Lymphocytes 7 % (20-55); Microcytosis 1+; Nucleated Red Blood Cells 1 (0-5); Promyelocytes 1 %; Segmented Neutrophils 83 % (50-85); Total Cells Counted 100
[2017-06-18 05:49] LABS: Ovalocytes Slight; Platelet Estimate Increased
[2017-06-18] MEDS: PIPERACILLIN/TAZOBACTAM 3,375 MG in SODIUM CHLORIDE 0.9% 100 ML IV SCH ×3 (06:16→22:45)
[2017-06-18] MEDS: ENOXAPARIN 40 MG/0.4 ML SYRINGE SUBCUT SCH (09:10)
[2017-06-18] MEDS: PANTOPRAZOLE 40 MG TABLET PO SCH (09:10)
[2017-06-19] MEDS: DEXTROSE 5% NACL 0.45% 1,000 ML IV SCH ×2 (05:07→12:37)
[2017-06-19] MEDS: metroNIDAZOLE INJ 500 MG in PREMIX 1 EACH IV SCH ×3 (05:28→18:12)
[2017-06-19 05:41] LABS: Basophils % 0.2 % (0.0-0.8); Eosinophils # 0.2 10*3/uL (0.0-0.87); Eosinophils % 1.9 % (0.00-10.9); Hematocrit 29.5 VOL% (35.7-47.0); Immature Granulocytes % 2.1 %; Immature Granulocytes Absolute 0.26 #; Lymphocytes # 1.7 10*3/uL (1.4-4.0); Lymphocytes % 14.1 % (21.3-54.2); Mean Corpuscular HGB Conc 30.5 GM/DL (32-36); Mean Corpuscular Hemoglobin 24 PG (27-34); Mean Corpuscular Volume 78.7 FL (87-102); Mean Platelet Volume 9.3 FL (9.6-12.0); Monocytes # 0.6 10*3/uL (0.11-0.8); Monocytes % 4.5 % (1.7-12.7); Neutrophils # 9.5 10*3/uL (1.4-7.4); Neutrophils % 77.2 % (38.7-73.9); Platelet Count 558 T/CUMM (130-400); Red Blood Count 3.75 MC/CUMM (3.8-5.5); White Blood Count 12.3 T/CUMM (4-12)
[2017-06-19] MEDS: PIPERACILLIN/TAZOBACTAM 3,375 MG in SODIUM CHLORIDE 0.9% 100 ML IV SCH ×2 (07:06→14:30)
[2017-06-19] MEDS: ENOXAPARIN 40 MG/0.4 ML SYRINGE SUBCUT SCH (09:16)
[2017-06-19] MEDS: PANTOPRAZOLE 40 MG TABLET PO SCH (09:16)
[2017-06-19] MEDS ORDERED: MORPHINE 2 MG/1 ML SYRINGE IV PRN (09:30)
[2017-06-19] MEDS: COLESTIPOL 1 GM TABLET PO SCH (18:30)
[2017-06-19] MEDS: metroNIDAZOLE 500 MG TABLET PO SCH (20:43)
[2017-06-19] MEDS: CIPROFLOXACIN 500 MG TABLET PO SCH (20:43)
[2017-06-20 06:21] LABS: Basophils % 0.3 % (0.0-0.8); Eosinophils # 0.2 10*3/uL (0.0-0.87); Eosinophils % 1.4 % (0.00-10.9); Hemoglobin 9.7 GM/DL (12.0-16.0); Immature Granulocytes % 1.5 %; Immature Granulocytes Absolute 0.21 #; Lymphocytes # 1.8 10*3/uL (1.4-4.0); Lymphocytes % 12.7 % (21.3-54.2); Mean Corpuscular HGB Conc 31.3 GM/DL (32-36); Mean Corpuscular Hemoglobin 24 PG (27-34); Mean Corpuscular Volume 78.1 FL (87-102); Mean Platelet Volume 9.4 FL (9.6-12.0); Monocytes # 0.6 10*3/uL (0.11-0.8); Monocytes % 3.9 % (1.7-12.7); Neutrophils # 11.5 10*3/uL (1.4-7.4); Neutrophils % 80.2 % (38.7-73.9); Platelet Count 634 T/CUMM (130-400); Red Blood Count 3.97 MC/CUMM (3.8-5.5); White Blood Count 14.3 T/CUMM (4-12)
[2017-06-20] MEDS: COLESTIPOL 1 GM TABLET PO SCH ×2 (06:22→18:20)
[2017-06-20 06:54] LABS: Albumin 2.3 G/DL (3.4-5.0); Bilirubin,Total 0.5 MG/DL (0.2-1.0); Osmolality,Calculated 270.7 MOS/KG (273-304); Potassium 3.7 MMOL/L (3.5-5.1); Total Protein 5.8 G/DL (6.4-8.3)
[2017-06-20] MEDS ORDERED: LOPERAMIDE 2 MG CAPSULE PO PRN (08:52)
[2017-06-20] MEDS: CIPROFLOXACIN 500 MG TABLET PO SCH ×2 (10:14→21:56)
[2017-06-20] MEDS: metroNIDAZOLE 500 MG TABLET PO SCH ×3 (10:14→21:56)
[2017-06-20] MEDS: PANTOPRAZOLE 40 MG TABLET PO SCH (10:15)
[2017-06-20] MEDS: ENOXAPARIN 40 MG/0.4 ML SYRINGE SUBCUT SCH (11:42)
[2017-06-21] MEDS: COLESTIPOL 1 GM TABLET PO SCH (06:01)
[2017-06-21 06:14] LABS: Basophils # 0.1 10*3/uL (0.0-0.2); Basophils % 0.3 % (0.0-0.8); Eosinophils # 0.3 10*3/uL (0.0-0.87); Hematocrit 31.3 VOL% (35.7-47.0); Hemoglobin 9.5 GM/DL (12.0-16.0); Immature Granulocytes % 1.8 %; Immature Granulocytes Absolute 0.27 #; Lymphocytes # 1.8 10*3/uL (1.4-4.0); Mean Corpuscular HGB Conc 30.4 GM/DL (32-36); Mean Corpuscular Hemoglobin 24 PG (27-34); Mean Corpuscular Volume 79.4 FL (87-102); Mean Platelet Volume 8.9 FL (9.6-12.0); Monocytes # 0.7 10*3/uL (0.11-0.8); Monocytes % 4.6 % (1.7-12.7); Neutrophils # 12.1 10*3/uL (1.4-7.4); Neutrophils % 79.3 % (38.7-73.9); Platelet Count 557 T/CUMM (130-400); Red Blood Count 3.94 MC/CUMM (3.8-5.5); Red Cell Distribution Width 16.8 % (9.3-17.3); White Blood Count 15.3 T/CUMM (4-12)
[2017-06-21 06:46] LABS: Calcium 7.9 MG/DL (8.5-10.1); Magnesium 2.3 MG/DL (1.8-2.4); Osmolality,Calculated 275.4 MOS/KG (273-304); Potassium 3.7 MMOL/L (3.5-5.1)
[2017-06-21 08:07] VITALS: BP 107/55
[2017-06-21] MEDS: PANTOPRAZOLE 40 MG TABLET PO SCH (08:58)
[2017-06-21] MEDS: metroNIDAZOLE 500 MG TABLET PO SCH (08:58)
[2017-06-21] MEDS: CIPROFLOXACIN 500 MG TABLET PO SCH (08:58)
== END 2017-06-21 10:19 | disposition home or self-care (01) | DRG 225 ==
LOC: N.ED 13:54 → N.EDINP 17:18 → N.3E 19:26
PROVIDERS: ADMIT Surgery; ATTEND Surgery

== ENCOUNTER 2020-04-12 05:54 | Inpatient (IN) ==
[2020-04-12] MEDS ORDERED: ceFAZolin 2,000 MG in PREMIX 1 EACH IV ONE (06:30)
[2020-04-12] MEDS ORDERED: FAMOTIDINE 20 MG TABLET PO ONE (06:37)
[2020-04-12] MEDS ORDERED: DIAZEPAM 5 MG TABLET PO ONE (06:37)
[2020-04-12] MEDS ORDERED: ALBUTEROL 2.5 MG/3 ML NEB RESP TX ONE (06:37)
[2020-04-12] MEDS ORDERED: ACETAMINOPHEN 500 MG TABLET PO ONE (06:37)
[2020-04-12] MEDS ORDERED: GABAPENTIN 400 MG CAPSULE PO ONE (06:37)
[2020-04-12] MEDS ORDERED: ROPIVACAINE 0.5% 30 ML VIAL ONE (06:41)
[2020-04-12] MEDS ORDERED: DEXAMETHASONE 4 MG/1 ML VIAL ONE (06:42)
[2020-04-12] MEDS ORDERED: LIDOCAINE 1% 5 ML VIAL ONE (06:42)
[2020-04-12] MEDS ORDERED: LACTATED RINGERS 1,000 ML IV SCH (07:00)
[2020-04-12] MEDS ORDERED: TISSUE ADHESIVE 1 EACH APPLICATOR TOP ONE ×2 (08:43→09:30)
[2020-04-12] MEDS ORDERED: SEVOFLURANE 1 UNIT/15 MINUTE INH ONE (09:55)
[2020-04-12] MEDS ORDERED: MIDAZOLAM 2 MG/2 ML VIAL ONE (09:55)
[2020-04-12] MEDS ORDERED: fentaNYL 250 MCG/5 ML VIAL ONE (09:55)
[2020-04-12] MEDS ORDERED: ONDANSETRON 4 MG/2 ML VIAL ONE (09:56)
[2020-04-12] MEDS ORDERED: fentaNYL 100 MCG/2 ML VIAL ONE ×2 (09:56)
[2020-04-12] MEDS ORDERED: ROCURONIUM 100 MG/10 ML VIAL IV ONE (09:57)
[2020-04-12] MEDS ORDERED: LIDOCAINE 2% 5 ML VIAL ONE (09:57)
[2020-04-12] MEDS ORDERED: ACETAMINOPHEN 1,000 MG/100 ML VIAL IV ONE (09:57)
[2020-04-12] MEDS ORDERED: propofoL 200 MG/20 ML VIAL IV ONE (09:57)
[2020-04-12] MEDS ORDERED: LACTATED RINGERS 1,000 ML IV ONE (09:59)
[2020-04-12] MEDS ORDERED: ONDANSETRON 4 MG/2 ML VIAL IV PRN ×2 (10:18→10:52)
[2020-04-12] MEDS: HYDROmorphone 2 MG/1 ML VIAL IV PRN ×7 (10:20→21:54)
[2020-04-12] MEDS ORDERED: PROMETHAZINE 25 MG/1 ML VIAL IM PRN (12:29)
[2020-04-12] MEDS: KETOROLAC 15 MG/1 ML VIAL IV SCH ×2 (12:54→17:36)
[2020-04-12] MEDS: LACTATED RINGERS 1,000 ML IV SCH ×2 (12:55→21:56)
[2020-04-12 13:43] LABS: Basophils # 0.1 10*3/uL (0.0-0.2); Basophils % 0.2 % (0.0-0.8); Eosinophils # 0.1 10*3/uL (0.0-0.87); Eosinophils % 0.4 % (0.00-10.9); Hematocrit 39.3 VOL% (35.7-47.0); Hemoglobin 12.2 GM/DL (12.0-16.0); Immature Granulocytes % 0.5 %; Lymphocytes % 9.6 % (21.3-54.2); Mean Corpuscular Volume 82.6 FL (87-102); Mean Platelet Volume 9.6 FL (9.6-12.0); Monocytes % 2.2 % (1.7-12.7); Neutrophils % 87.1 % (38.7-73.9); Platelet Count 427 T/CUMM (130-400); Red Blood Count 4.76 MC/CUMM (3.8-5.5); Red Cell Distribution Width 14.8 % (9.3-17.3); White Blood Count 20.3 T/CUMM (4-12)
[2020-04-12 13:49] LABS: Calcium 8.3 MG/DL (8.5-10.1); Osmolality,Calculated 273.7 MOS/KG (273-304)
[2020-04-12 14:18] LABS: Elliptocytes Few; Lymphocytes 11 % (20-55); Platelet Estimate Adequate; Polychromasia Slight; Segmented Neutrophils 86 % (50-85); Total Cells Counted 100
[2020-04-12] MEDS: ONDANSETRON 4 MG/2 ML VIAL IV PRN ×2 (15:09→18:41)
[2020-04-13] MEDS: KETOROLAC 15 MG/1 ML VIAL IV SCH ×3 (01:12→12:35)
[2020-04-13 05:26] LABS: Basophils % 0.1 % (0.0-0.8); Eosinophils # 0.4 10*3/uL (0.0-0.87); Eosinophils % 2.3 % (0.00-10.9); Hematocrit 35.7 VOL% (35.7-47.0); Immature Granulocytes % 0.6 %; Immature Granulocytes Absolute 0.11 #; Lymphocytes # 1.3 10*3/uL (1.4-4.0); Lymphocytes % 7.5 % (21.3-54.2); Mean Corpuscular HGB Conc 30.8 GM/DL (32-36); Mean Corpuscular Volume 83.6 FL (87-102); Mean Platelet Volume 9.8 FL (9.6-12.0); Monocytes % 2.1 % (1.7-12.7); Neutrophils % 87.4 % (38.7-73.9); Platelet Count 353 T/CUMM (130-400); Red Blood Count 4.27 MC/CUMM (3.8-5.5); Red Cell Distribution Width 15.1 % (9.3-17.3); White Blood Count 17.2 T/CUMM (4-12)
[2020-04-13 05:44] LABS: Calcium 7.9 MG/DL (8.5-10.1); Osmolality,Calculated 271.8 MOS/KG (273-304)
[2020-04-13] MEDS: ONDANSETRON 4 MG/2 ML VIAL IV PRN (05:53)
[2020-04-13] MEDS ORDERED: ENOXAPARIN 40 MG/0.4 ML SYRINGE SUBCUT SCH (06:00)
[2020-04-13] MEDS: LACTATED RINGERS 1,000 ML IV SCH ×2 (06:58→07:17)
[2020-04-13 15:58] VITALS: BP 113/58
== END 2020-04-13 16:44 | disposition home or self-care (01) | DRG 355 ==
LOC: N.OR 05:54 → N.SDSINP 05:58 → N.4E 12:20
PROVIDERS: ADMIT Surgery; ATTEND Surgery